=== PATIENT | female | born 1950 | race Caucasian/White ===

== ENCOUNTER 2022-11-27 13:48 | Outpatient (CLI) | payer MEDICARE ==
[2022-11-27 14:43] LABS: #Basophils 0.1 10x3/uL (0.0-0.2); #Eosinphils 0.2 10x3/uL (0.0-0.5); #Monocytes 0.7 10x3/uL (0.0-1.1); #Neutrophils 5.7 10x3/uL (1.5-8.4); %Basophils 0.8 % (0.0-2.0); %Eosinophils 2.5 % (0.0-6.0); %Lymphocytes 19.2 % (18.0-47.0); %Monocytes 8.8 % (0.0-10.0); %Neutrophils 68.3 % (40.0-75.0); Hemoglobin 12.4 g/dL (12.0-15.5); Mean Corpuscular HGB CONC 31.4 g/dL (32.0-36.0); Mean Corpuscular Hemoglobin 28.4 pg (27.0-33.0); Mean Corpuscular Volume 90.6 fl (81.6-98.3); Mean Platelet Volume 9.1 fl (7.4-10.4); Platelet Count 415 10x3/uL (150-450); RBC Distribution Width 13.7 % (11.5-14.5); Red Blood Cell (RBC) Count 4.36 10x6/uL (3.90-5.03); White Blood Cell (WBC) Count 8.3 10x3/uL (3.5-10.5)
[2022-11-27 15:02] LABS: Prothrombin Time 10.7 sec (9.5-12.1)
[2022-11-27 15:07] LABS: Anion Gap 15 mmol/L (10-20); BUN (Urea Nitrogen) 16 mg/dL (9.8-20.1); Calc. Creatinine Clearance 0 mL/min (70-130); Calcium 9.1 mg/dL (7.8-10.44); Carbon Dioxide 26 mmol/L (23-31); Chloride 106 mmol/L (98-107); Estimated GFR 77; Glucose 87 mg/dL (83-110); Potassium 4.4 mmol/L (3.5-5.1); Sodium 143 mmol/L (136-145)
== END 2022-11-27 13:49 | disposition home or self-care (01) ==
LOC: LABBT 13:48
PROVIDERS: ATTEND Orthopaedic Surgery
DX: Z01.818 Encounter for other preprocedural examination (principal); M17.11 Unilateral primary osteoarthritis, right knee
CPT/HCPCS: 80048; 85025; 85610; 87081; 93005; 93010

== ENCOUNTER 2022-12-02 05:42 | Inpatient (IN) | payer MEDICARE ==
[2022-12-02] MEDS ORDERED: Vancomycin (BATCH) 1.5 GRAM/300 ML BAG ONE (05:55)
[2022-12-02] MEDS ORDERED: Sodium Chloride 0.9% 100 ML ONE ×2 (05:55→07:01)
[2022-12-02] MEDS ORDERED: Tranexamic Acid 1,000 MG/10 ML VIAL ONE (05:55)
[2022-12-02] MEDS ORDERED: Bupivacaine PF 0.5% 30 ML VIAL ONE ×2 (06:22→06:45)
[2022-12-02] MEDS ORDERED: Propofol 500 MG/50 ML VIAL ONE (06:23)
[2022-12-02] MEDS ORDERED: Promethazine HCl 25 MG/ML VIAL ONE (06:23)
[2022-12-02] MEDS ORDERED: Phenylephrine 10 MG/ML VIAL ONE (06:23)
[2022-12-02] MEDS ORDERED: fentaNYL PF 100 MCG/2 ML SYRINGE ONE (06:39)
[2022-12-02] MEDS ORDERED: Midazolam HCl 2 mg/2 ml Vial ONE (06:44)
[2022-12-02] MEDS ORDERED: fentaNYL 50 mcg/mL 1 mL Vial ONE ×4 (06:44→09:51)
[2022-12-02] MEDS ORDERED: EPINEPHrine 1 MG/ML AMP ONE (06:45)
[2022-12-02] MEDS ORDERED: Zolpidem Tartrate 5 MG TAB PO PRN ×2 (06:50→07:15)
[2022-12-02] MEDS ORDERED: Promethazine HCl 25 MG/ML VIAL IM PRN ×2 (06:50→07:15)
[2022-12-02] MEDS ORDERED: HYDROcodone/Acetaminophen 10/325 mg Tablet PO PRN ×2 (06:50)
[2022-12-02] MEDS ORDERED: Acetaminophen 325 MG TAB PO PRN (06:50)
[2022-12-02] MEDS ORDERED: diphenhydrAMINE 25 MG CAP PO PRN (06:50)
[2022-12-02] MEDS ORDERED: Ondansetron PF 4 MG/2 ML Vial IVP PRN ×2 (06:50→07:15)
[2022-12-02] MEDS ORDERED: Polyethylene Glycol 3350 17 GM Packet PO PRN (06:51)
[2022-12-02] MEDS ORDERED: Hydrochlorothiazide 25 MG TAB PO PRN (06:51)
[2022-12-02] MEDS ORDERED: Ergocalciferol 1.25 MG(50,000 UNITS) CAP PO SCH (07:00)
[2022-12-02] MEDS ORDERED: CEFAZOLIN 2 GM VIAL ONE (07:01)
[2022-12-02] MEDS ORDERED: fentaNYL 50 mcg/mL 1 mL Vial SLOW IVP PRN ×2 (07:04→07:14)
[2022-12-02] MEDS ORDERED: PHENYLEPHRINE-NS 100 MCG/ML 10 ML SYRINGE ONE (07:11)
[2022-12-02] MEDS ORDERED: Dexamethasone 20 MG/5 ML VIAL ONE (07:11)
[2022-12-02] MEDS ORDERED: Lidocaine 1% PF 5 ML VIAL ONE (07:11)
[2022-12-02] MEDS ORDERED: PROPOFOL 200 MG/20 ML VIAL ONE (07:11)
[2022-12-02] MEDS ORDERED: Ondansetron PF 4 MG/2 ML Vial ONE (07:11)
[2022-12-02] MEDS ORDERED: traMADol HCl 50 MG TAB PO PRN (07:15)
[2022-12-02] MEDS ORDERED: Ropivacaine 0.2% 550 ML 550 ML NERVE BLCK SCH (07:15)
[2022-12-02] MEDS ORDERED: HYDROmorphone 2 MG/ML VIAL ONE (07:44)
[2022-12-02] MEDS ORDERED: hydrALAZINE 20 MG/ML VIAL ONE (08:56)
[2022-12-02] MEDS ORDERED: Non-Formulary Item 1 EACH (Cetirizine Hcl [Zyrtec] 10 MG Capsule) PO SCH (09:00)
[2022-12-02] MEDS ORDERED: [UNRECOGNIZED DRUG - OTHER] PO SCH (09:00)
[2022-12-02] MEDS ORDERED: cycloSPORINE 0.05% Ophthalmic Droperette EA EYE SCH (09:00)
[2022-12-02] MEDS ORDERED: Non-Formulary Item 1 EACH (Levothyroxine Sodium [Synthroid] 137 MCG Tablet) PO SCH (09:00)
[2022-12-02] MEDS ORDERED: Non-Formulary Item 1 EACH (Estradiol [Estradiol] 0.5 MG Tablet) PO SCH (09:00)
[2022-12-02] MEDS ORDERED: CALCIUM CITRATE PO SCH (09:00)
[2022-12-02] MEDS ORDERED: [UNRECOGNIZED DRUG - OTHER] SL SCH (09:00)
[2022-12-02] MEDS ORDERED: VITAMIN D3 PO SCH (09:00)
[2022-12-02] MEDS ORDERED: EAC PO SCH (09:00)
[2022-12-02] MEDS ORDERED: HYDROmorphone 0.5 MG/0.5 ML SYRINGE ONE (09:20)
[2022-12-02 10:42] VITALS: BMI 41.9
[2022-12-02] MEDS: Cyanocobalamin (Vitamin B-12) 1,000 MCG TAB PO SCH (10:45)
[2022-12-02] MEDS: Aspirin 81 mg Enteric Coated Tablet PO SCH ×2 (10:45→21:18)
[2022-12-02] MEDS: Sodium Chloride 0.9% 1,000 ML IV SCH ×2 (10:45→19:48)
[2022-12-02] MEDS: Calcium Carbonate 600 MG + Vit D TAB PO SCH (10:45)
[2022-12-02] MEDS: Estradiol 1 MG TAB PO SCH (10:46)
[2022-12-02] MEDS: Multivitamin W/ Minerals 1 TAB PO SCH (10:46)
[2022-12-02] MEDS: Docusate 100 MG CAP PO SCH ×2 (10:46→21:20)
[2022-12-02] MEDS: Loratadine 10 MG TAB PO SCH (10:46)
[2022-12-02] MEDS: Ferrous Gluconate 324 MG TAB PO SCH ×2 (10:46→21:20)
[2022-12-02] MEDS: Senokot S 8.6-50 MG TAB PO SCH ×2 (10:47→21:21)
[2022-12-02] MEDS: cycloSPORINE 0.05% Ophthalmic Droperette EA EYE SCH ×2 (10:47→21:21)
[2022-12-02] MEDS: Ketorolac Tromethamine 30 MG/ML VIAL IVP SCH ×3 (12:32→23:10)
[2022-12-02] MEDS ORDERED: Ketorolac Tromethamine 30 MG/ML VIAL IVP SCH (14:00)
[2022-12-02] MEDS: CEFAZOLIN 2 GM in Sodium Chloride 0.9% 100 ML IVPB SCH ×2 (15:40→21:16)
[2022-12-02] MEDS: HYDROcodone/Acetaminophen 10/325 mg Tablet PO PRN ×2 (15:40→21:27)
[2022-12-02] MEDS: Atorvastatin Calcium 20 MG TAB PO SCH (21:19)
[2022-12-02] MEDS: Cyclobenzaprine 10 MG TAB PO PRN (21:22)
[2022-12-03] MEDS: traMADol HCl 50 MG TAB PO PRN (02:19)
[2022-12-03] MEDS: Sodium Chloride 0.9% 1,000 ML IV SCH ×3 (03:44→21:58)
[2022-12-03] MEDS: HYDROcodone/Acetaminophen 10/325 mg Tablet PO PRN ×4 (05:41→21:59)
[2022-12-03] MEDS: Ketorolac Tromethamine 30 MG/ML VIAL IVP SCH ×3 (05:42→17:38)
[2022-12-03] MEDS: Levothyroxine Sodium 25 MCG TAB PO SCH (05:43)
[2022-12-03] MEDS: Levothyroxine Sodium 112 MCG TAB PO SCH (05:43)
[2022-12-03 05:59] LABS: Hemoglobin 10.8 g/dL (12.0-16.0); Mean Corpuscular HGB CONC 33.7 g/dL (32.0-36.0); Mean Corpuscular Hemoglobin 30.5 pg (27.0-31.0); Mean Corpuscular Volume 90.5 fl (78.0-98.0); Mean Platelet Volume 6.8 fL (7.4-10.4); Platelet Count 328 10x3/uL (130-400); RBC Distribution Width 12.5 % (11.5-14.5); Red Blood Cell (RBC) Count 3.53 mill/uL (4.20-5.40); White Blood Cell (WBC) Count 10.9 10x3/uL (4.8-10.8)
[2022-12-03] MEDS: cycloSPORINE 0.05% Ophthalmic Droperette EA EYE SCH ×2 (08:22→20:06)
[2022-12-03] MEDS: Loratadine 10 MG TAB PO SCH (08:24)
[2022-12-03] MEDS: Cyanocobalamin (Vitamin B-12) 1,000 MCG TAB PO SCH (08:24)
[2022-12-03] MEDS: Calcium Carbonate 600 MG + Vit D TAB PO SCH (08:24)
[2022-12-03] MEDS: Docusate 100 MG CAP PO SCH ×2 (08:24→20:04)
[2022-12-03] MEDS: Multivitamin W/ Minerals 1 TAB PO SCH (08:24)
[2022-12-03] MEDS: Ferrous Gluconate 324 MG TAB PO SCH ×2 (08:24→20:04)
[2022-12-03] MEDS: Estradiol 1 MG TAB PO SCH (08:24)
[2022-12-03] MEDS: Senokot S 8.6-50 MG TAB PO SCH ×2 (08:24→20:03)
[2022-12-03] MEDS: Aspirin 81 mg Enteric Coated Tablet PO SCH ×2 (08:25→20:03)
[2022-12-03] MEDS: Atorvastatin Calcium 20 MG TAB PO SCH (20:05)
[2022-12-03] MEDS: Cyclobenzaprine 10 MG TAB PO PRN (21:59)
[2022-12-04] MEDS: Ketorolac Tromethamine 30 MG/ML VIAL IVP SCH ×2 (00:17→05:15)
[2022-12-04] MEDS: Levothyroxine Sodium 25 MCG TAB PO SCH (05:15)
[2022-12-04] MEDS: Levothyroxine Sodium 112 MCG TAB PO SCH (05:15)
[2022-12-04] MEDS: Sodium Chloride 0.9% 1,000 ML IV SCH ×2 (08:43→18:02)
[2022-12-04] MEDS: HYDROcodone/Acetaminophen 10/325 mg Tablet PO PRN ×3 (08:47→22:23)
[2022-12-04] MEDS: Estradiol 1 MG TAB PO SCH (08:48)
[2022-12-04] MEDS: Multivitamin W/ Minerals 1 TAB PO SCH (08:49)
[2022-12-04] MEDS: Docusate 100 MG CAP PO SCH ×2 (08:49→22:20)
[2022-12-04] MEDS: Cyanocobalamin (Vitamin B-12) 1,000 MCG TAB PO SCH (08:49)
[2022-12-04] MEDS: Senokot S 8.6-50 MG TAB PO SCH ×2 (08:49→22:19)
[2022-12-04] MEDS: Aspirin 81 mg Enteric Coated Tablet PO SCH ×2 (08:49→22:18)
[2022-12-04] MEDS: Loratadine 10 MG TAB PO SCH (08:50)
[2022-12-04] MEDS: Calcium Carbonate 600 MG + Vit D TAB PO SCH (08:50)
[2022-12-04] MEDS: Ferrous Gluconate 324 MG TAB PO SCH ×2 (08:50→22:19)
[2022-12-04] MEDS: cycloSPORINE 0.05% Ophthalmic Droperette EA EYE SCH ×2 (09:36→22:20)
[2022-12-04] MEDS: traMADol HCl 50 MG TAB PO PRN (14:05)
[2022-12-04] MEDS: Cyclobenzaprine 10 MG TAB PO PRN (22:19)
[2022-12-04] MEDS: Atorvastatin Calcium 20 MG TAB PO SCH (22:19)
[2022-12-05] MEDS: Levothyroxine Sodium 112 MCG TAB PO SCH (05:26)
[2022-12-05] MEDS: Levothyroxine Sodium 25 MCG TAB PO SCH (05:27)
[2022-12-05 06:28] LABS: #Basophils 0.1 thou/uL (0.0-0.2); #Eosinphils 0.4 thou/uL (0.0-0.7); #Lymphocytes 1.7 thou/uL (1.20-3.40); #Monocytes 1.1 thou/uL (0.11-0.59); #Neutrophils 8.9 thou/uL (1.40-6.50); %Basophils 0.5 % (0.0-1.0); %Lymphocytes 13.7 % (21.0-51.0); %Monocytes 9.4 % (0.0-10.0); %Neutrophils 73.5 % (42.0-75.0); Hemoglobin 11.3 g/dL (12.0-16.0); Mean Corpuscular HGB CONC 34.1 g/dL (32.0-36.0); Mean Corpuscular Hemoglobin 31.4 pg (27.0-31.0); Mean Corpuscular Volume 92.3 fl (78.0-98.0); Platelet Count 345 10x3/uL (130-400); RBC Distribution Width 12.6 % (11.5-14.5); Red Blood Cell (RBC) Count 3.58 mill/uL (4.20-5.40); White Blood Cell (WBC) Count 12.1 10x3/uL (4.8-10.8)
[2022-12-05 06:46] LABS: Anion Gap 13 mmol/L (10-20); BUN (Urea Nitrogen) 16 mg/dL (9.8-20.1); Calc. Creatinine Clearance 117 mL/min (70-130); Calcium 8.7 mg/dL (7.8-10.44); Carbon Dioxide 25 mmol/L (23-31); Chloride 104 mmol/L (98-107); Estimated GFR 77; Glucose 121 mg/dL (83-110); Magnesium 1.8 mg/dL (1.6-2.6); Potassium 4.4 mmol/L (3.5-5.1); Sodium 138 mmol/L (136-145)
[2022-12-05] MEDS: Sodium Chloride 0.9% 1,000 ML IV SCH ×2 (06:47→15:34)
[2022-12-05] MEDS: Cyanocobalamin (Vitamin B-12) 1,000 MCG TAB PO SCH (08:17)
[2022-12-05] MEDS: Docusate 100 MG CAP PO SCH (08:17)
[2022-12-05] MEDS: Estradiol 1 MG TAB PO SCH (08:18)
[2022-12-05] MEDS: Loratadine 10 MG TAB PO SCH (08:18)
[2022-12-05] MEDS: Multivitamin W/ Minerals 1 TAB PO SCH (08:18)
[2022-12-05] MEDS: Calcium Carbonate 600 MG + Vit D TAB PO SCH (08:18)
[2022-12-05] MEDS: Senokot S 8.6-50 MG TAB PO SCH ×2 (08:18→21:59)
[2022-12-05] MEDS: Aspirin 81 mg Enteric Coated Tablet PO SCH ×2 (08:18→21:57)
[2022-12-05] MEDS: Ferrous Gluconate 324 MG TAB PO SCH ×2 (08:18→21:58)
[2022-12-05] MEDS: HYDROcodone/Acetaminophen 10/325 mg Tablet PO PRN ×4 (08:18→22:06)
[2022-12-05] MEDS: cycloSPORINE 0.05% Ophthalmic Droperette EA EYE SCH ×2 (08:21→21:59)
[2022-12-05] MEDS ORDERED: Polyethylene Glycol 3350 17 GM Packet PO PRN (15:28)
[2022-12-05] MEDS ORDERED: Magnesium Citrate 300 ML BOT PO SCH (15:30)
[2022-12-05] MEDS ORDERED: Bisacodyl 10 MG SUPP PR SCH (15:30)
[2022-12-05] MEDS ORDERED: Senokot S 8.6-50 MG TAB PO SCH (21:00)
[2022-12-05] MEDS: Atorvastatin Calcium 20 MG TAB PO SCH (21:58)
[2022-12-05] MEDS: Cyclobenzaprine 10 MG TAB PO PRN (22:05)
[2022-12-06] MEDS: Sodium Chloride 0.9% 1,000 ML IV SCH ×2 (01:41→11:10)
[2022-12-06] MEDS: HYDROcodone/Acetaminophen 10/325 mg Tablet PO PRN ×5 (01:41→19:41)
[2022-12-06] MEDS: Levothyroxine Sodium 112 MCG TAB PO SCH (06:17)
[2022-12-06] MEDS: Levothyroxine Sodium 25 MCG TAB PO SCH (06:18)
[2022-12-06] MEDS: Cyclobenzaprine 10 MG TAB PO PRN (06:18)
[2022-12-06] MEDS: Multivitamin W/ Minerals 1 TAB PO SCH (09:36)
[2022-12-06] MEDS: Estradiol 1 MG TAB PO SCH (09:36)
[2022-12-06] MEDS: Loratadine 10 MG TAB PO SCH (09:36)
[2022-12-06] MEDS: Calcium Carbonate 600 MG + Vit D TAB PO SCH (09:36)
[2022-12-06] MEDS: Aspirin 81 mg Enteric Coated Tablet PO SCH (09:36)
[2022-12-06] MEDS: Cyanocobalamin (Vitamin B-12) 1,000 MCG TAB PO SCH (09:36)
[2022-12-06] MEDS: Ferrous Gluconate 324 MG TAB PO SCH (09:36)
[2022-12-06] MEDS: Senokot S 8.6-50 MG TAB PO SCH (09:36)
[2022-12-06] MEDS: cycloSPORINE 0.05% Ophthalmic Droperette EA EYE SCH (09:40)
[2022-12-06] MEDS ORDERED: Losartan 25 MG TAB PO SCH (15:00)
[2022-12-06 19:58] VITALS: BP 124/77; TEMP 98
[2022-12-07] MEDS ORDERED: Losartan 25 MG TAB PO SCH (09:00)
== END 2022-12-06 20:30 | disposition swing bed (61) | DRG 470 ==
LOC: SDC 05:42 → SURG B 10:38 → SDC 14:31 → SURG B 14:32 → OBSVTOIN 12-04 07:28
PROVIDERS: ADMIT Orthopaedic Surgery; ATTEND Orthopaedic Surgery
PROC: 0SRC0J9 Replacement of Right Knee Joint with Synthetic Substitute, Cemented, Open Approach (ICD-10-PCS; principal; 2022-12-02)
DX: M17.11 Unilateral primary osteoarthritis, right knee (principal); I95.2 Hypotension due to drugs; K59.00 Constipation, unspecified; E03.9 Hypothyroidism, unspecified; I10 Essential (primary) hypertension; E78.5 Hyperlipidemia, unspecified; R53.81 Other malaise; Z88.1 Allergy status to other antibiotic agents; Z88.8 Allergy status to other drugs, medicaments and biological substances; Z79.82 Long term (current) use of aspirin; Z79.899 Other long term (current) drug therapy; Z79.890 Hormone replacement therapy; Z90.710 Acquired absence of both cervix and uterus; Z90.49 Acquired absence of other specified parts of digestive tract; Z80.9 Family history of malignant neoplasm, unspecified
CPT/HCPCS: 36415; 80048; 83735; 85025; 85027; A4306; C1713; C1776; J0171; J0360; J1100; J1170; J1650; J1885; J2250; J2370; J2405; J2550; J2704; J2795; J3010; J3370; J3490; S0020